=== PATIENT | female | born 1960 | race Two or more races ===

== ENCOUNTER 2024-10-02 08:51 | Inpatient (IN) | payer OTHER ==
[~2024-10-02] VITALS: Ht 172.7 cm; Wt 57.9 kg
[2024-10-02] VITALS (10 sets, daily range): BP systolic 114; BP diastolic 79; PULSE 87–100; RESP 11–25; O2SAT 94–99
--- NOTE | 2024-10-02 09:21 | ED.PDOC ---
SOB-HPI HPI Comments 64Y F with PMHx HTN, COPD, and seizures presents to ED via EMS for chief complaint SOB x2days with cough. Pt was initially seen at [facility] but was referred to ED due to SpO2 being 80% on RA. Pt was provided with one breathing treatment by EMS en route to ED. Pt stopped smoking cigarettes 7 days ago. No other symptoms reported. Chief Complaint: Shortness of Breath Time Seen by MD: 09:00 Reviewed notes: Nurses Notes, Scientific Advisor Notes, Medications, Allergies Information Source: Patient, Emergency Med Personnel Mode of Arrival: EMS Severity: Mild Timing: Days Duration: Since onset Context: At Rest PE Risk Factors: None History of: COPD Prehospital treatment: Breathing Tx Modifying Factors: Nothing Associated Signs and Symptoms: Cough If cough with SOB: Productive Past Medical History PAST MEDICAL HISTORY: COPD, HTN, Seizures Surgical History: Denies all surgeries BEREAVEMENT COUNSELOR History: No Pertinent BEREAVEMENT COUNSELOR History Family History Family History: Unknown Social History Smoker: Quit Less Than 1 Year Alcohol: Denies ETOH Use Drugs: Denies Drug Use Lives In: Home Constitutional: denies: chills, diaphoresis, fatigue, fever, malaise, sweats, weakness, others EENTM: denies: blurred vision, double vision, ear bleeding, ear discharge, ear drainage, ear pain, ear ringing, eye pain, eye redness, hearing loss, mouth pain, mouth swelling, nasal discharge, nose bleeding, nose congestion, nose pain, photophobia, tearing, throat pain, throat swelling, voice changes, others Respiratory: reports: cough, shortness of breath; denies: hemoptysis, orthopnea, SOB at rest, SOB with excertion, stridor, wheezing, others Cardiovascular: denies: chest pain, dizzy spells, diaphoresis, Dyspnea on exertion, edema, irregular heart beat, left arm pain, lightheadedness, palpitations, PND, syncope, others Gastrointestinal: denies: abdomen distended, abdominal pain, blood streaked bowels, constipated, diarrhea, dysphagia, difficulty swallowing, hematemesis, melena, nausea, poor appetite, poor fluid intake, rectal bleeding, rectal pain, vomiting, others Genitourinary: denies: abnormal vagina bleeding, burning, dyspareunia, dysuria, flank pain, frequency, hematuria, incontinence, pain, , vagina discharge, urgency, others Neurological: denies: dizziness, fainting, headache, left sided numbness, left sided weakness, numbness, paresthesia, pre-existing deficit, right sided numbness, right sided weakness, seizure, speech problems, tingling, tremors, weakness, others Musculoskeletal: denies: back pain, gout, joint pain, joint swelling, muscle pain, muscle stiffness, neck pain, others Integumetry: denies: bruises, change in color, change in hair/nails, dryness, laceration, lesions, lumps, rash, wounds, others Allergic/Immunocompromised: denies: Difficulty Healing, Frequent Infections, Hives, Itching, others Hematologic/Lymphatic: denies: anemia, blood clots, easy bleeding, easy bruising, swollen glands, others Endocrine: denies: excessive hunger, excessive sweating, excessive thirst, excessive urination, flushing, intolerance to cold, intolerance to heat, unexplained weight gain, unexplained weight loss, others Psychiatric: denies: anxiety, bipolar disorder, depression, hopeless, panic disorder, schizophrenia, sleepless, suicidal, others All Other Systems: Reviewed and Negative Physical Exam General Appearance: No Apparent Distress, Normal HEENT: Normal ENT Inspection, Pharynx Normal, TMs Normal Neck: Full Range of Motion, Non-Tender, Normal, Normal Inspection Respiratory: Chest Non-Tender, Lungs Clear, No Accessory Muscle Use, No Respiratory Distress, Normal Breath Sounds Cardiovascular: No Edema, No JVD, No Murmur, No Gallop, Normal Peripheral Pulses, Regular Rate/Rhythm Breast Exam: Deferred Gastrointestinal: No Organomegaly, Non Tender, No Pulsatile Mass, Normal Bowel Sounds, Soft Genitalia: Deferred Pelvic: Deferred Rectal: Deferred Extremities: No calf tenderness, Normal capillary refill, Normal inspection, Normal range of motion, Non-tender, No pedal edema Musculoskeletal : Apperance: Normal Neurologic: Alert, theology teacher II-XII nml as Tested, No Motor Deficits, Normal Affect, Normal Mood, No Sensory Deficits Cerebellar Function: Normal Reflexes: Normal Skin: Dry, Normal Color, Warm Lymphatic: No Adenopathy Was a procedure done? Was a procedure done?: No Differential Dx Differential Diagnosis: Anxiety, Asthma, Bronchitis, CHF, COPD, Hyperventilation, Myocardial infarction, Panic Attack, Pneumonia, Pneumothorax, Pulmonary Embolism, Respiratory Distress, URI X-Ray, Labs, Meds, VS Vital Signs Date Time Temp Pulse Resp B/P (MAP) Pulse Ox O2 Delivery O2 Flow Rate FiO2 10/02/24 10:00 95 16 121/86 (98) 97 10/02/24 09:46 98 10/02/24 09:31 93 94 Nasal Cannula* 2 28 10/02/24 09:00 98.6 100 20 145/92 (109) 94 98.6 10/02/24 09:00 95 20 94 Nasal Cannula* 2 28 10/02/24 08:57 18 99 T-piece 8.0 10/02/24 08:57 97.8 94 18 144/100 (115) 99 Lab Test 10/02/24 10:30 10/02/24 09:30 Range/Units Troponin I High Sensitivity Pending 8 </=34 ng/L White Blood Count 9.2 4.4-10.8 10^3/uL Red Blood Count 4.79 4.0-5.20 10^6/uL Hemoglobin 14.7 12.2-16.2 g/dL Hematocrit 42.9 36.0-46.0 % Mean Corpuscular Volume 89.6 80.0-100.0 fL Mean Corpuscular Hemoglobin 30.7 28.0-32.0 pg Mean Corpuscular Hemoglobin Concent 34.2 32.0-36.0 g/dL Red Cell Distribution Width 13.3 11.8-14.3 % Platelet Count 406 140-450 10^3/uL Mean Platelet Volume 7.6 6.9-10.8 fL Neutrophils (%) (Auto) 69.2 37.0-80.0 % Lymphocytes (%) (Auto) 20.1 10.0-50.0 % Monocytes (%) (Auto) 9.6 0.0-12.0 % Eosinophils (%) (Auto) 0.7 0.0-7.0 % Basophils (%) (Auto) 0.4 0.0-2.0 % Neutrophils # (Auto) 6.4 1.6-8.6 10 ^3/uL Lymphocytes # (Auto) 1.8 0.4-5.4 10 ^3/uL Monocytes # (Auto) 0.9 0-1.3 10 ^3/uL Eosinophils # (Auto) 0.1 0-0.8 10 ^3/uL Basophils # (Auto) 0 0-0.2 10 ^3/uL Nucleated Red Blood Cells 0.0 % Sodium Level 138 136-145 mmol/L Potassium Level 3.1 L 3.5-5.1 mmol/L Chloride Level 101 98-107 mmol/L Carbon Dioxide Level 31 20-31 mmol/L Anion Gap 6 5-15 Blood Urea Nitrogen 15 9-23 mg/dL Creatinine 0.95 0.550-1.02 mg/dL Glomerular Filtration Rate Calc 67 >90 mL/min BUN/Creatinine Ratio 15.8 10.0-20.0 Serum Glucose 146 H 74-106 mg/dL Calcium Level 9.8 8.7-10.4 mg/dL Current Medications Medications (Trade) Dose Ordered Sig/Collin Route Start Time Stop Time Status Last Admin Albuterol (Ventolin Medneb) 20 mg ONCE ONCE NEB 10/02/24 09:15 10/02/24 09:16 DC 10/02/24 09:31 Ipratropium Thelma (Atrovent Medneb) 0.5 mg ONCE ONCE NEB 10/02/24 09:15 10/02/24 09:16 DC 10/02/24 09:29 Methylprednisolone Sodium Succinate (Solu Medrol) 125 mg ONCE ONCE IV 10/02/24 09:15 10/02/24 09:16 DC 10/02/24 09:29 [place] [id number] Ph: [phone] DIAGNOSTIC IMAGING Diagnostic Imaging Report : [id number] Signed PATIENT: PREMA PADILLA ACCT: [id number] UNIT: [id number] : 1960 LOC: ER ROOM / BED: / AGE / SEX: 64 / F ADM STATUS: REG ER SERVICE 8 ORDERING PHYSICIAN: AILYN JONES MD PROCEDURE(s): CXRP - CHEST PORTABLE REASON: sob ORDER NUMBER(s): [id number], ACCESSION NUMBER(s): [id number] CHEST RADIOGRAPH Indication: sob Technique: Single frontal view of the chest was obtained Comparison: None FINDINGS: Lines and Tubes: None Lungs: No focal consolidation. Pleura: No effusion. No pneumothorax. Cardiomediastinal contours: Unremarkable Bones: No acute osseous abnormality. IMPRESSION: 1. No acute cardiopulmonary disease. ATED BY: TARUN KLEIN MD DICTATED DATE/TIME: 10/02/24927 SIGNED BY: TARUN KLEIN MD SIGNED DATE/TIME: 10/02/24927 CC: Time of 1ST Reevaluation: 09:30 Reevaluation 1ST: Unchanged Time of 2ND Reevaluation: 11:07 Reevaluation 2ND: Improved Patient Education/Counseling: Diagnosis, Treatment, Prognosis, Need For Follow Up Family Education/Counseling: No Family Present Additional Information I reviewed the following notes from patient's past medical encounters: None The following tests were ordered, and results were reviewed by me: EKGx3, CBC, BMP, Troponin x3, COVID19 Ag, Rapid Influenza A&B, CXR Additional Information was gathered from interviewing the following independent historians: EMS I reviewed and agreed with the following test results read by other providers: CXR I discussed treatment and results with medical personnel. pt is a smoker who quit a week ago. she has severe copd exacerbation with hypoxia. she responds to med neb treatments, but will need repeat treatments and close monitoring to ensure no recurrences. pt will be admitted Departure 1 Departure Time of Disposition: 11:09 Impression: Primary Impression: COPD exacerbation Additional Impressions: Tobacco abuse Acute respiratory failure Qualified Codes: J96.01 - Acute respiratory failure with hypoxia Disposition: ADMITTED INPATIENT Condition: Stable Discharged With: Self Critical Care Note Critical Care Time?: Yes (55 min-critical care time only) Critical care comment: Due to concerns for patients condition deteriorating, the care required my highest level of attention and readiness to intervene. I assessed the patient, reviewed the medical records, ordered the appropriate tests and treatments, then reassessed for results and responsiveness. I communicated with medical personnel and consultants and formulated a plan of care. Total critical care time excludes any procedures Stability Stability form required: No Heart Score Heart Score: Heart Score Response (Comments) Value History N/A 0 EKG N/A 0 Age N/A 0 Risk Factors N/A 0 Troponin N/A 0 Total 0 I personally scribed for AILYN JONES MD ([email or web address]) on 10/02/24 at 09:21. Electronically submitted by Rima Rios ([email or web address]). I personally scribed for AILYN JONES MD ([email or web address]) on 10/02/24 at 09:50. Electronically submitted by Rima Rios ([email or web address]). AILYN JONES MD Oct 02, 2024 09:21
[2024-10-02] MEDS: methylPREDNISolone SOD SUCC 125 MG/2 ML VL IV ONE (09:29)
[2024-10-02] MEDS: IPRATROPIUM BROM 0.5 MG/2.5ML INH SOL NEB ONE (09:29)
[2024-10-02] MEDS: ALBUTEROL SULF 2.5 MG/0.5ML(0.5%) NEB SOLN NEB ONE (09:31)
--- NOTE | 2024-10-02 09:31 | DVH ---
CHEST RADIOGRAPH Indication: sob Technique: Single frontal view of the chest was obtained Comparison: None FINDINGS: Lines and Tubes: None Lungs: No focal consolidation. Pleura: No effusion. No pneumothorax. Cardiomediastinal contours: Unremarkable Bones: No acute osseous abnormality. IMPRESSION: 1. No acute cardiopulmonary disease.
[2024-10-02 10:08] LABS: Chloride 101 mmol/L (98-107); Sodium 138 mmol/L (136-145)
[2024-10-02 10:09] LABS: Anion Gap 6 (5-15); Calcium 9.8 mg/dL (8.7-10.4)
[2024-10-02 10:12] LABS: Carbon Dioxide 31 mmol/L (20-31); Potassium 3.1 mmol/L (3.5-5.1)
[2024-10-02 10:14] LABS: BUN/Creatinine Ratio 15.8 (10.0-20.0); Blood Urea Nitrogen 15 mg/dL (9-23)
[2024-10-02 10:18] LABS: Basophils # (auto) 0 10 ^3/uL (0-0.2); Basophils % (auto) 0.4 % (0.0-2.0); Eosinophils # (auto) 0.1 10 ^3/uL (0-0.8); Eosinophils % (auto) 0.7 % (0.0-7.0); Hematocrit 42.9 % (36.0-46.0); Hemoglobin 14.7 g/dL (12.2-16.2); Lymphocytes # (auto) 1.8 10 ^3/uL (0.4-5.4); Lymphocytes % (auto) 20.1 % (10.0-50.0); Mean Corpuscular Hemoglobin 30.7 pg (28.0-32.0); Mean Corpuscular Hgb Conc. 34.2 g/dL (32.0-36.0); Mean Corpuscular Volume 89.6 fL (80.0-100.0); Monocytes # (auto) 0.9 10 ^3/uL (0-1.3); Monocytes % (auto) 9.6 % (0.0-12.0); Neutrophils # (auto) 6.4 10 ^3/uL (1.6-8.6); Neutrophils % (auto) 69.2 % (37.0-80.0); Platelet Count (auto) 406 10^3/uL (140-450); Red Blood Cells 4.79 10^6/uL (4.0-5.20); Red Cell Distribution Width 13.3 % (11.8-14.3); White Blood Cell 9.2 10^3/uL (4.4-10.8)
[2024-10-02 10:24] LABS: Glucose 146 mg/dL (74-106)
--- NOTE | 2024-10-02 11:49 | DVHHP2 ---
History of Present Illness Reason for Visit: Shortness of the breath and cough for two days History of Present Illness 64-year-old female past medical history hypertension COPD seizures greater than five years ago currently not on meds no surgical history chief complaint patient states she has been short of breath and not able to breathe for two days. She denies any fever. She states since she had this shortness of the breath she stopped smoking nine days prior. Patient states she went to [facility] today and they sent her here for evaluation because she was found to be hypoxic 80% on room air she got a breathing treatment on arrival here and which improved her symptoms. When evaluating past since labs and imaging potassium was given Solu-Medrol albuterol Atrovent CBC was unremarkable potassium was 3.1 glucose was 146 chest x-ray was negative troponin was negative x2 influenza and COVID was negative. Patient denies any history of intubation in the past. With these findings we will admit patient for COPD exacerbation provide IV steroids and treatments. Past Medical History Hypertension COPD seizures greater than five years ago Past Surgical History Denies surgical history Family History Reviewed, non-contributory to the management of this case. Past Social History Patient has stopped smoking nine days prior to admission due to the shortness of the breath denies any drug or alcohol use Review of Systems Constitutional: No: Fever, Chills, Sweats, Weakness, Malaise, Other Eyes: No: Pain, Vision change, Conjunctivae inflammation, Eyelid inflammation, Other, Redness ENT: No: Ear pain, Ear discharge, Nose pain, Nose discharge, Nose congestion, Mouth pain, Mouth swelling, Throat pain, Throat swelling, Other Respiratory: Shortness of breath, SOB with excertion, Wheezing; No: Cough, Dry, Hemoptysis, Pleuritic Pain, Sputum, Wheezing, Other Cardiovascular: No: Chest Pain, Palpitations, Orthopnea, Paroxysmal Noc. Dyspnea, Edema, Lt Headedness, Other Gastrointestinal: No: Nausea, Vomiting, Abdominal Pain, Diarrhea, Constipation, Melena, Hematochezia, Other Genitourinary: No Dysuria, No Frequency, No Incontinence, No Hematuria, No Retention, No Other Musculoskeletal: No: other, neck pain, shoulder pain, arm pain, back pain, hand pain, leg pain, foot pain Skin: No: Rash, Lesions, Jaundice, Bruising, Other Neurological: Weakness; No: Numbness, Incoordination, Change in speech, Confusion, Seizures, Other Allergies: Coded Allergies: NO KNOWN ALLERGIES (Unverified , 10/02/24) Exam Vital Signs Vital Signs Date Time Temp Pulse Resp B/P (MAP) Pulse Ox O2 Delivery O2 Flow Rate FiO2 10/02/24 10:00 95 16 121/86 (98) 97 10/02/24 09:31 Nasal Cannula* 2 28 10/02/24 09:00 98.6 98.6 General Appearance: Alert, Oriented X3, Cooperative, mild distress HEENT: Atraumatic, PERRLA, EOMI, Mucous membr. moist/pink Respiratory: Other (Coarse wheezes throughout) Cardiovascular: Regular rate, Normal S1, Normal S2, No murmurs Abdominal: Normal bowel sounds, Soft, No tenderness, No hepatospenomegaly, No masses Extremities: No clubbing, No cyanosis, No edema, Normal pulses, No tenderness/swelling Skin: No rashes, No breakdown, No significant lesion Neuro: Normal speech, Strength at 5/5 X4 ext, Normal tone, Sensation intact, Other (Neuro nonfocal) Psych/Mental Status: Mental status NL, Mood NL Labs/Xrays Chest x-ray unremarkable I reviewed labs, imaging CT scan abdomen pelvis, EKG and all diagnostic studies on this patient from ED records and the medical chart Labs Test 10/02/24 11:30 10/02/24 10:30 10/02/24 09:30 Range/Units Troponin I High Sensitivity 7 </=34 ng/L White Blood Count 9.2 4.4-10.8 10^3/uL Red Blood Count 4.79 4.0-5.20 10^6/uL Hemoglobin 14.7 12.2-16.2 g/dL Hematocrit 42.9 36.0-46.0 % Mean Corpuscular Volume 89.6 80.0-100.0 fL Mean Corpuscular Hemoglobin 30.7 28.0-32.0 pg Mean Corpuscular Hemoglobin Concent 34.2 32.0-36.0 g/dL Red Cell Distribution Width 13.3 11.8-14.3 % Platelet Count 406 140-450 10^3/uL Mean Platelet Volume 7.6 6.9-10.8 fL Neutrophils (%) (Auto) 69.2 37.0-80.0 % Lymphocytes (%) (Auto) 20.1 10.0-50.0 % Monocytes (%) (Auto) 9.6 0.0-12.0 % Eosinophils (%) (Auto) 0.7 0.0-7.0 % Basophils (%) (Auto) 0.4 0.0-2.0 % Neutrophils # (Auto) 6.4 1.6-8.6 10 ^3/uL Lymphocytes # (Auto) 1.8 0.4-5.4 10 ^3/uL Monocytes # (Auto) 0.9 0-1.3 10 ^3/uL Eosinophils # (Auto) 0.1 0-0.8 10 ^3/uL Basophils # (Auto) 0 0-0.2 10 ^3/uL Nucleated Red Blood Cells 0.0 % Sodium Level 138 136-145 mmol/L Potassium Level 3.1 L 3.5-5.1 mmol/L Chloride Level 101 98-107 mmol/L Carbon Dioxide Level 31 20-31 mmol/L Anion Gap 6 5-15 Blood Urea Nitrogen 15 9-23 mg/dL Creatinine 0.95 0.550-1.02 mg/dL Glomerular Filtration Rate Calc 67 >90 mL/min BUN/Creatinine Ratio 15.8 10.0-20.0 Serum Glucose 146 H 74-106 mg/dL Calcium Level 9.8 8.7-10.4 mg/dL Assessment/Plan Assessment/Plan acute hypoxic resp failure likely from copd exacerbation cxr normal o2 to keep sats >92% Continue O2 ordered abg if sats desats consider bipap if with resp distress no need for antibotics at this time ordered Albuterol and Atrovent atc ordered solumedrol atc covid and influenza negative acute COPD exacerbation sats was 80% on ra ordered albuterol/atrovent atc ordered Oxygen as needed keep sats greater than 92% ordered solumedrol ordered Advair pulmon consult appreciate recs ordered influenza and covid fu results acute mild hypokalemia ordered repeat k fu results ordered mag and phos fu results chronic problems with continuation of medication htn cpod seizures greater than five years ago currently not on meds fen/ppx protonix while steroids scd diet plan admit to tele son name Harley [phone] Plan discussed with: Patient Date of Service: Oct 02, 2024 Billing Provider: LAKISHA BURRIS DNP Common Visit Codes: [id number]-[id number] INP/OBS CARE (HIGH), [id number] CARE 30- 74 MIN (Total critical care time: Approximately 45 minutes This critical care time included obtaining a history; examining the patient; pulse oximetry; ordering and review of studies; arranging urgent treatment with development of a management plan; evaluation of patient's response to treatment; frequent reassessment; and, discussions with other providers.) LAKISHA BURRIS DNP Oct 02, 2024 11:49
[2024-10-02] MEDS: POTASSIUM CHL 20 Meq TABLET PO ONE (12:11)
[2024-10-02 12:34] LABS: COVID19 ANTIGEN SOFIA FIA NEGATIVE (NEGATIVE); Rapid Influenza A Negative (Negative); Rapid Influenza B Negative (Negative)
[2024-10-02] MEDS ORDERED: DOCUSATE SOD 100 MG CAP PO PRN (13:00)
[2024-10-02] MEDS ORDERED: NITROGLYCERIN 0.4 MG SL TAB SL PRN (13:00)
[2024-10-02] MEDS ORDERED: ONDANSETRON HCL 4 MG/2 ML VIAL IV PRN (13:00)
[2024-10-02 13:24] LABS: Magnesium 1.8 mg/dL (1.6-2.6)
[2024-10-02 13:25] LABS: Phosphorus 3.2 mg/dL (2.4-5.1)
[2024-10-02 13:26] LABS: Base Excess 4.6 mmol/L (-2.0-3.0)
[2024-10-02] MEDS: PANTOPRAZOLE 40 MG/10 ML VIAL INJ IV ONE (13:33)
[2024-10-02] MEDS: SODIUM CHLORIDE 0.9% 1,000 ML IV SCH (13:33)
[2024-10-02] MEDS: methylPREDNISolone SOD SUCC 40 MG/ML VL IV SCH (13:34)
[2024-10-02] MEDS: IPRATROPIUM BROM 0.5 MG/2.5ML INH SOL NEB SCH (13:35)
[2024-10-02] MEDS: ALBUTEROL SULF 2.5 MG/0.5ML(0.5%) NEB SOLN NEB SCH (13:35)
[2024-10-02] MEDS: AMIODARONE BOLUS KIT 100 ML IV ONE (15:00)
[2024-10-02] MEDS: AMIODARONE 450mg/250ml AE 250 ML IV SCH ×2 (15:15→15:31)
--- NOTE | 2024-10-02 15:31 | DVHINCON2 ---
Date Seen: Oct 02, 2024 Referring Physician ALIS Zelaya Reason for Consultation Nonsustained V-tach History of Present Illness This is a 64-year-old female patient who presents to the emergency room with chief complaint of shortness of breath and cough for one week. She also mentions chest pain. She describes the chest pain as provoked by coughing, intermittent, pressure-like in nature, and substernal with radiation down bilateral ribcage. The patient states that she was originally seen at urgent care and was prompted to come to the emergency room for further evaluation. Cardiology has now been consulted for episode of nonsustained V-tach. Initial twelve lead electrocardiogram reveals sinus tachycardia with PAC and prolonged QTc interval at 538. quality assurance monitor body shows event of nonsustained V-tach. Initial and serial troponin levels have been negative. Significant past medical history includes hypertension, COPD, tobacco use, kidney stones, and seizures. The patient denies any previous cardiac history. Past Medical History Past medical history reviewed. No other significant than mentioned above. Past Surgical History Tonsillectomy Appendectomy Cholecystectomy Family History Family history reviewed. Social History Patient has a 25 pack-year history, quit smoking approximately nine days ago Patient denies any illicit drug use Patient denies any alcohol use Allergies: Coded Allergies: NO KNOWN ALLERGIES (Unverified , 10/02/24) Home Meds Patient denies taking any prescribed medications Current Medications Current Medications Medications (Trade) Dose Ordered Sig/Collin Route PRN Reason Start Time Stop Time Status Last Admin Methylprednisolone Sodium Succinate (Solu Medrol) 40 mg Q8HR IV 10/02/24 14:00 10/02/24 13:34 Pantoprazole Sodium (Protonix) 40 mg DAILY IV 10/03/24 10:00 Albuterol (Ventolin Medneb) 2.5 mg Q4HR NEB 10/02/24 14:00 10/02/24 13:35 Ipratropium [place] (Atrovent Medneb) 0.5 mg Q4HR NEB 10/02/24 14:10/02/24 13:35 Sodium Chloride 1,000 ml @ 100 mls/hr Q10H IV 10/02/24 13:00 10/02/24 13:33 Ondansetron HCl (Zofran) 4 mg Q4HP PRN IV NAUSEA / VOMITING 10/02/24 13:00 Docusate Sodium (Colace Capsule) 100 mg BIDPRN PRN PO FOR CONSTIPATION 10/02/24 13:00 Enoxaparin Sodium (Lovenox) 40 mg DAILY SC 10/03/24 10:00 Morphine Sulfate 2 mg Q4HPRN PRN IV SEVERE PAIN (7-10 PAIN SCALE) 10/02/24 13:00 Nitroglycerin (Ntrostat Sublingual) 0.4 mg Q5MINP PRN SL FOR CHEST PAIN 10/02/24 13:00 Amiodarone HCl 250 ml @ 33.333 mls/ hr Q7H30M IV 10/02/24 15:15 10/02/24 21:14 Amiodarone HCl 250 ml @ 16.667 mls/ hr Q15H IV 10/02/24 21:15 Review of Systems Constitutional: No symptom reported Ears, Nose, & Throat: No symptom reported Eyes: No symptom reported Neurological: No symptoms reported Pulmonary/Respiratory: Shortness of breath Cardiovascular: Chest pain Gastrointestinal: No symptom reported Genitourinary: No symptom reported Musculoskeletal: No symptom reported Skin: No symptom reported Psychiatric: No symptom reported Endocrine: No symptom reported Hematologic/Lymphatic: No symptom reported Vital Signs Vital Signs Date Time Temp Pulse Resp B/P (MAP) Pulse Ox O2 Delivery O2 Flow Rate FiO2 10/02/24 14:00 101 16 124/74 (91) 95 10/02/24 13:46 4.0 10/02/24 13:35 Nasal Cannula* 36 10/02/24 09:00 98.6 98.6 Physical Exam General Appearance: Cooperative. Thin Pulmonary/Respiratory: Coarse and diminished throughout all lung sánchez Cardiovascular/Chest: Regular rate and rhythm. Peripheral Pulses: 2+ Radial (R). 2+ Radial (L). 2+ Pedal (R). 2+ Pedal (L) Abdominal Exam: Normal bowel sounds. Ankle Exam: Negative ankle edema Lower extremities: Negative lower extremity edema Neuro/Mental Status: A/OX4, coherent. Thoughts/Psych: Normal thought pattern. Appropriate mood and affect. Good judgment and insight. Appearance: No acute distress. Skin Exam: Normal inspection. Normal color. Warm and dry. Labs/Diagnostic Data Labs Test 10/02/24 13:10 10/02/24 11:30 10/02/24 10:30 10/02/24 09:30 Range/Units Blood Gas Specimen Type Arterial Blood Gas Sample Site Left radial Blood Gas Patient Temperature 37.0 Arterial Blood Date Drawn [id number] Arterial Blood pH 7.473 H 7.350-7.450 Arterial Blood Partial Pressure CO2 39.7 32.0-45.0 mmHg Arterial Blood Partial Pressure O2 54.7 *L 83.0-108.0 mmHg Arterial Blood HCO3 28.4 H 21.0-28.0 mmol/L Arterial Blood Oxygen Saturation 91.0 L 94.0-98.0 % Arterial Blood Base Excess 4.6 H -2.0-3.0 mmol/L Arterial Blood Oxyhemoglobin 89.4 L 94.0-98.0 % Arterial Blood Carboxyhemoglobin 1.1 0.5-1.5 % Arterial Blood Methemoglobin 0.7 0.0-1.5 % Slick Test Yes Blood Gas Total Hemoglobin 14.80 12.0-16.0 g/dL Blood Gas Modality Room air FiO2 % 28.0 Blood Gas Critical Value Read Back yes Blood Gas Notified Whom Marc zelaya dnp Blood Gas Notified Time [id number] Blood Gas Notified By hernando angel rrt Influenza Type A Antigen Negative Negative Influenza Type B Antigen Negative Negative SARS-CoV-2 Antigen (Rapid) Negative NEGATIVE Troponin I High Sensitivity 7 </=34 ng/L White Blood Count 9.2 4.4-10.8 10^3/uL Red Blood Count 4.79 4.0-5.20 10^6/uL Hemoglobin 14.7 12.2-16.2 g/dL Hematocrit 42.9 36.0-46.0 % Mean Corpuscular Volume 89.6 80.0-100.0 fL Mean Corpuscular Hemoglobin 30.7 28.0-32.0 pg Mean Corpuscular Hemoglobin Concent 34.2 32.0-36.0 g/dL Red Cell Distribution Width 13.3 11.8-14.3 % Platelet Count 406 140-450 10^3/uL Mean Platelet Volume 7.6 6.9-10.8 fL Neutrophils (%) (Auto) 69.2 37.0-80.0 % Lymphocytes (%) (Auto) 20.1 10.0-50.0 % Monocytes (%) (Auto) 9.6 0.0-12.0 % Eosinophils (%) (Auto) 0.7 0.0-7.0 % Basophils (%) (Auto) 0.4 0.0-2.0 % Neutrophils # (Auto) 6.4 1.6-8.6 10 ^3/uL Lymphocytes # (Auto) 1.8 0.4-5.4 10 ^3/uL Monocytes # (Auto) 0.9 0-1.3 10 ^3/uL Eosinophils # (Auto) 0.1 0-0.8 10 ^3/uL Basophils # (Auto) 0 0-0.2 10 ^3/uL Nucleated Red Blood Cells 0.0 % Sodium Level 138 136-145 mmol/L Potassium Level 3.1 L 3.5-5.1 mmol/L Chloride Level 101 98-107 mmol/L Carbon Dioxide Level 31 20-31 mmol/L Anion Gap 6 5-15 Blood Urea Nitrogen 15 9-23 mg/dL Creatinine 0.95 0.550-1.02 mg/dL Glomerular Filtration Rate Calc 67 >90 mL/min BUN/Creatinine Ratio 15.8 10.0-20.0 Serum Glucose 146 H 74-106 mg/dL Calcium Level 9.8 8.7-10.4 mg/dL Phosphorus Level 3.2 2.4-5.1 mg/dL Magnesium Level 1.8 1.6-2.6 mg/dL Assessment Nonsustained ventricular tachycardia Rule out structural heart disease Acute hypoxic respiratory failure COPD exacerbation Hypokalemia History of seizures History of tobacco use Plan/Recommendation We will continue with the following plan/recommendations (Dr. Kimbrough): * Echocardiogram to evaluate cardiac function * Cardiac surveillance * Monitor and replete electrolytes as needed, keep potassium greater than four and magnesium greater than two * Nuclear stress test 10/03/24 Patient seen and examined in the emergency room with . We will schedule the patient for a nuclear stress test tomorrow 10/03/2024. Thank you for allowing us to care for this patient. Please call with any questions or concerns. Critical care time spent: 43 minutes This medical document was created using an electronic medical record system with voice recognition software and computerized dictation system. Although this document has been carefully reviewed, there might still be some phonetic and typographical errors. Occasional wrong-word or ``sound-alike substitutions may have occurred due to the inherent limitations of voice recognition software. These areas are purely typographical due to imperfections of the software programs and do not reflect any compromise in the patient's medical care. Please read the chart carefully and recognize, using context, where these substitutions have occurred. Plan discussed with: Patient NYHA Physical activity limitations: NA Date of Service: Oct 02, 2024 Billing Provider: TERI KIMBROUGH MD Cardiology Common Codes: [id number] INP/OBS CARE (High) Cardiology Consultation Codes: [id number] CONSULT <45MIN JOHN ARIAS Oct 02, 2024 15:31
[2024-10-02] MEDS: MAGNESIUM SULFATE 1GM/100ML 100 ML IV ONE (16:58)
--- NOTE | 2024-10-02 18:31 | ECG ---
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
--- NOTE | 2024-10-02 19:35 | DVHSR ---
APPROVED REPORT EXAM: LIMITED Two-dimensional and M-mode echocardiogram with Doppler and color Doppler. Blood Pressure: 124/74 mmHg INDICATION eval for cardiac function and ef RISK FACTORS Height: 5'4, Weight: 120 DIMENSIONS EF (%) 55.0 (55-70%)Rt. Atrium3.8 (1.9-4.0cm)Asc. Aorta cm Mitral Valve MitralMitral Stenosis E wave0.52m/sMV Mean GR.mmHg A wave0.77m/sMV Peak GR.mmHg E/A ratio0.72D MVAcm2 DECEL [id number] 1/2 Tim[place] Aortic Valve Aortic ValveAortic Stenosis V11.11m/Tamir Mean GR.5mmHg V21.55m/Tamir Peak GR.10mmHg LVOT Diameter1.6 (1.8-2.4cm)Doppler AVA1.44cm2 Tricuspid Valve TR Velocity2.43m/s [id number] LEFT VENTRICLE Not well visualized. Likely normal systolic function. EF estimated at 60%. RIGHT VENTRICLE Not well visualized. Likely normal size and systolic function. ATRIA Not well visualized. Likely normal biatrial size. MITRAL VALVE Not well visualized. No significant regurgitation. PULMONIC VALVE Not well visualized. TRICUSPID VALVE Likely normal. There is trace regurgitation. PA systolic pressure estimated at 29 mmhg. AORTIC VALVE Not well visualized. No evidence of significant stenosis. GREAT VESSELS Not well visualized. PERICARDIAL EFFUSION No pericardial effusion. IVC is of normal size and collapses normally with inspiration. Conclusion Study is very technically limited. Normal left ventricular systolic function with EF of 60%. Normal right ventricle size and systolic function. Valves not well visualized. PA systolic pressure estimated at 29 mmHg. No pericardial effusion.
[2024-10-03] VITALS (21 sets, daily range): BP systolic 130–147; BP diastolic 77–96; PULSE 77–97; RESP 12–20; TEMP 98–98.5; O2SAT 93–100
[2024-10-03 06:32] LABS: Basophils # (auto) 0 10 ^3/uL (0-0.2); Basophils % (auto) 0.1 % (0.0-2.0); Eosinophils # (auto) 0 10 ^3/uL (0-0.8); Hematocrit 36.1 % (36.0-46.0); Hemoglobin 12.3 g/dL (12.2-16.2); Lymphocytes % (auto) 11.2 % (10.0-50.0); Mean Corpuscular Hemoglobin 30.5 pg (28.0-32.0); Mean Corpuscular Hgb Conc. 34.1 g/dL (32.0-36.0); Mean Corpuscular Volume 89.4 fL (80.0-100.0); Monocytes # (auto) 0.7 10 ^3/uL (0-1.3); Monocytes % (auto) 7.7 % (0.0-12.0); Neutrophils # (auto) 7.3 10 ^3/uL (1.6-8.6); Platelet Count (auto) 371 10^3/uL (140-450); Red Blood Cells 4.04 10^6/uL (4.0-5.20); Red Cell Distribution Width 13.6 % (11.8-14.3); White Blood Cell 9.1 10^3/uL (4.4-10.8)
[2024-10-03 06:39] LABS: Albumin 3.6 g/dL (3.2-4.8); Alkaline Phosphatase 75 U/L (46-116); Anion Gap 6 (5-15); BUN/Creatinine Ratio 31.4 (10.0-20.0); Blood Urea Nitrogen 22 mg/dL (9-23); Calcium 9.4 mg/dL (8.7-10.4); Carbon Dioxide 28 mmol/L (20-31); Chloride 106 mmol/L (98-107); Potassium 3.6 mmol/L (3.5-5.1); Sodium 140 mmol/L (136-145); Total Protein 6.4 g/dL (5.7-8.2)
[2024-10-03 06:42] LABS: Aspartate Aminotransferase 10 U/L (13-40); Glucose 133 mg/dL (74-106)
[2024-10-03 06:43] LABS: Alanine Aminotransferase < 9 U/L (7-40); Bilirubin, Total 0.3 mg/dL (0.2-1.0)
--- NOTE | 2024-10-03 07:42 | ECG ---
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
[2024-10-03] MEDS: MORPHINE SULFATE INJ 2 MG/ml SYRG IV PRN (08:33)
[2024-10-03] MEDS: REGADENOSON 0.4 MG/5 ML SYRG IV ONE ×2 (09:42→09:49)
[2024-10-03] MEDS: ENOXAPARIN SOD 40 MG/0.4 ML SYRINGE SC SCH (10:04)
[2024-10-03] MEDS: PANTOPRAZOLE 40 MG/10 ML VIAL INJ IV SCH (10:04)
--- NOTE | 2024-10-03 10:07 | DVHPN2 ---
Consult Progress Note Subjective Other Systems: The patient remains in normal sinus rhythm on alarm security or surveillance monitor at time of assessment Objective vital signs Vital Sign Date Time Temp Pulse Resp B/P (MAP) Pulse Ox O2 Delivery O2 Flow Rate FiO2 10/03/24 09:03 92 16 140/84 10/03/24 09:00 94 10/03/24 07:50 98.2 98.2 10/03/24 07:50 Nasal Cannula* 3 32 Total Intake and Output 10/02/24 10/02/24 10/03/24 15:00 23:00 07:00 Intake Total 500 ml 1100 ml Balance 500 ml 1100 ml medications Current Medications Medications Dose Ordered Sig/Collin Route Start Time Stop Time Status Last Admin Dose Admin Methylprednisolone Sodium Succinate 40 mg Q8HR IV 10/02/24 14:00 10/03/24 05:12 40 MG Pantoprazole Sodium 40 mg DAILY IV 10/03/24 10:00 10/03/24 10:04 40 MG Albuterol 2.5 mg Q4HR NEB 10/02/24 14:00 10/03/24 06:41 2.5 MG Ipratropium [place] 0.5 mg Q4HR NEB 10/02/24 14:00 10/03/24 06:40 0.5 MG Sodium Chloride 1,000 ml @ 100 mls/hr Q10H IV 10/02/24 13:00 10/03/24 09:12 100 MLS/HR Ondansetron HCl 4 mg Q4HP PRN IV 10/02/24 13:00 Docusate Sodium 100 mg BIDPRN PRN PO 10/02/24 13:00 Enoxaparin Sodium 40 mg DAILY SC 10/03/24 10:00 10/03/24 10:04 40 MG Morphine Sulfate 2 mg Q4HPRN PRN IV 10/02/24 13:00 10/03/24 08:33 2 MG Nitroglycerin 0.4 mg Q5MINP PRN SL 10/02/24 13:00 Examination: GENERAL:Normal, LUNGS:Abnormal (Diminished bilateral lower lobes), CVS:Normal, NEURO:Normal laboratory and microbiology Laboratory Tests 10/03/24 05:45 Test 10/03/24 05:45 Range/Units Serum Glucose 133 H 74-106 mg/dL Problem List/Assessment/Plan Problem List/Assessment/Plan Nonsustained ventricular tachycardia Acute hypoxic respiratory failure COPD exacerbation Hypokalemia History of seizures History of tobacco use Plan/Recommendation (Dr. Garcia): * Echocardiogram reveals EF 60% * Cardiac surveillance * Monitor and replete electrolytes as needed, keep potassium greater than four and magnesium greater than two * Pending nuclear stress test results Patient seen and examined at bedside with Dr. Garcia. Thank you for allowing us to care for this patient. Please call with any questions or concerns. This medical document was created using an electronic medical record system with voice recognition software and computerized dictation system. Although this document has been carefully reviewed, there might still be some phonetic and typographical errors. Occasional wrong-word or ``sound-alike substitutions may have occurred due to the inherent limitations of voice recognition software. These areas are purely typographical due to imperfections of the software programs and do not reflect any compromise in the patient's medical care. Please read the chart carefully and recognize, using context, where these substitutions have occurred. Plan discussed with: Patient Date of Service: Oct 03, 2024 Billing Provider: JOHN ARIAS Common Visit Codes: [id number] INP/OBS CARE(HIGH) JOHN ARIAS Oct 03, 2024 10:07
[2024-10-03] MEDS: POTASSIUM CHL 20 Meq TABLET PO ONE (10:30)
[2024-10-03] MEDS ORDERED: KETOROLAC TROMETH 30 MG/ML 1ML VIAL IV PRN (14:45)
--- NOTE | 2024-10-03 18:27 | DVHOP ---
DATE OF SURGERY: 10/03/2024 TECHNIQUE PERFORMED: Intermittent myocardial perfusion scan. PROCEDURE IN DETAIL: The patient underwent a resting scan by giving intravenous Cardiolite. With the help of the SPECT camera different images of the left ventricle were obtained, which include long axis, short axis and horizontal axis views. The patient was subsequently given intravenous adenosine and followed by intravenous technetium-99m sestamibi to do the stress images. Now after we have done the images in short axis, long axis and then horizontal axial view. Subsequently, stress and rest images both have been compared. There is a normal perfusion of anterior wall, lateral wall, inferoposterior wall and septum. Size of the left ventricle, normal ejection fraction of the left ventricle is 53% and is normal. CONCLUSION: * This is a normal myocardial perfusion scan. No evidence of any perfusion defect. * Left ventricular ejection fraction 53% and is normal. Catalina Garcia MD MP/MICK TID: [id number] RECEIPT: [id number]
--- NOTE | 2024-10-03 19:54 | DVHPN2 ---
Consult Progress Note Subjective Other Systems: Patient was seen and evaluated in follow-up. The patient remains in normal sinus rhythm on cardiac nurse. Stres test is pending. Objective vital signs Vital Sign Date Time Temp Pulse Resp B/P (MAP) Pulse Ox O2 Delivery O2 Flow Rate FiO2 10/03/24 17:00 98.5 90 19 142/88 (106) 95 98.5 10/03/24 13:55 Nasal Cannula* 3 32 Total Intake and Output 10/02/24 10/02/24 10/03/24 15:00 23:00 07:00 Intake Total 500 ml 1100 ml Balance 500 ml 1100 ml medications Current Medications Medications Dose Ordered Sig/Collin Route Start Time Stop Time Status Last Admin Dose Admin Albuterol 2.5 mg Q4HR NEB 10/02/24 14:00 10/03/24 13:55 2.5 MG Ipratropium [place] 0.5 mg Q4HR NEB 10/02/24 14:00 10/03/24 13:55 0.5 MG Sodium Chloride 1,000 ml @ 100 mls/hr Q10H IV 10/02/24 13:00 10/03/24 09:12 100 MLS/HR Enoxaparin Sodium 40 mg DAILY SC 10/03/24 10:00 10/03/24 10:04 40 MG Acetaminophen 650 mg Q8HR PO 10/03/24 22:00 Prednisone 40 mg DAILY PO 10/04/24 10:00 Azithromycin 250 mg DAILY PO 10/04/24 10:00 Ketorolac Tromethamine 15 mg Q6HPRN PRN IV 10/03/24 14:45 10/08/24 14:44 Examination: GENERAL:Normal, HEENT:Normal, NECK:Normal, LUNGS:Abnormal (Diminished bilateral lower lobes), CVS:Normal, ABDOMEN:Normal, MSK:Normal, SKIN:Normal, NEURO:Normal laboratory and microbiology Laboratory Tests 10/03/24 05:45 Test 10/03/24 05:45 Range/Units Serum Glucose 133 H 74-106 mg/dL Problem List/Assessment/Plan Problem List/Assessment/Plan Nonsustained ventricular tachycardia. Acute hypoxic respiratory failure. COPD exacerbation. Hypokalemia. History of seizures. History of tobacco use. Plan/Recommendation: Continued all current supportive medical care. Patient has been seen by Karo Espinoza NP on my behalf, her and I discussed the plan with the patient. Echocardiogram reveals EF 60%. Cardiac surveillance. Monitor and replete electrolytes as needed, keep potassium greater than four and magnesium greater than two. Pending nuclear stress test results. Additional plan as per the hospital course. Plan discussed with: Patient Date of Service: Oct 03, 2024 Billing Provider: CAMERON GALLEGOS MD Cardiology Common Codes: [id number] HOSP CARE(High CAMERON GALLEGOS MD Oct 03, 2024 18:31
--- NOTE | 2024-10-03 20:51 | DVHPN2 ---
Assessment/Plan Assessment/Plan Progress note subjective seen today during rounds, on o2 supp, not using any nebs at home, ss since 9 days, started with URI. tele reviewed, NSVT. stress test negative physical exam alert oriented s1 s2 RRR no murmur mild wheezing abdomen soft no paraspinal tenderness no le edema labs and imaging reviewed assessment and plan COPD group E with exacerbation PNA GN vs GP NSVT chronic back pain ex smoker c/w telemetry prednisone albuterol ipatropium zithromax empiric keep spo2 >90 cardio consult appreciated needs PCP and pulm as outpatient diet heart healthy dvt ppx lovenox Plan discussed with: Patient My Orders Orders - MARIAJOSE CA MD Procedure Category Date Status Time Acetaminophen Tablet PHA 10/03/24 In Process (Tylenol Tablet) 22:00 Prednisone Tablet PHA 10/04/24 In Process 10:00 Azithromycin Tablet PHA 10/04/24 In Process (Zithromax Tablet) 10:00 Ketorolac Injection PHA 10/03/24 In Process (Toradol Injection) 14:45 Date of Service: Oct 03, 2024 Billing Provider: MARIAJOSE CA MD Common Visit Codes: [id number] INP/OBS CARE(HIGH) MARIAJOSE CA MD Oct 03, 2024 20:51
[2024-10-03] MEDS: ACETAMINOPHEN 325 MG TAB PO SCH (21:30)
[2024-10-03] MEDS: DOXYCYCLINE 100 MG TAB/CAP PO SCH (22:49)
[2024-10-04] VITALS (20 sets, daily range): BP systolic 110–144; BP diastolic 66–87; PULSE 68–94; RESP 14–20; TEMP 91.2–98.7; O2SAT 91–100
[2024-10-04 06:55] LABS: Calcium 9.2 mg/dL (8.7-10.4); Chloride 106 mmol/L (98-107); Potassium 4.1 mmol/L (3.5-5.1); Sodium 141 mmol/L (136-145)
[2024-10-04 06:56] LABS: Anion Gap 4 (5-15); Carbon Dioxide 31 mmol/L (20-31)
[2024-10-04 07:01] LABS: BUN/Creatinine Ratio 36.1 (10.0-20.0); Glucose 85 mg/dL (74-106)
[2024-10-04 07:11] LABS: Blood Urea Nitrogen 26 mg/dL (9-23)
[2024-10-04] MEDS: predniSONE 20 MG TAB PO SCH (09:54)
[2024-10-04] MEDS ORDERED: AZITHROMYCIN 250 MG TAB PO SCH (10:00)
--- NOTE | 2024-10-04 15:34 | DVHPN2 ---
Assessment/Plan Assessment/Plan Progress note subjective seen today during rounds, titrating down o2 rec. still mildly wheezing physical exam alert oriented s1 s2 RRR no murmur mild wheezing abdomen soft no paraspinal tenderness no le edema labs and imaging reviewed assessment and plan COPD group E with exacerbation PNA GN vs GP NSVT chronic back pain ex smoker c/w telemetry prednisone albuterol ipatropium zithromax empiric keep spo2 >90 cardio consult appreciated needs PCP and pulm as outpatient diet heart healthy dvt ppx lovenox Plan discussed with: Patient My Orders Orders - MARIAJOSE CA MD Procedure Category Date Status Time Doxycycline Tablet PHA 10/03/24 In Process (Vibramycin Tablet) 22:00 Date of Service: Oct 04, 2024 Billing Provider: MARIAJOSE CA MD Common Visit Codes: [id number] INP/OBS CARE(HIGH) MARIAJOSE CA MD Oct 04, 2024 15:34
--- NOTE | 2024-10-04 22:08 | DVHPN2 ---
Progress Note - Dictate Date Seen: Oct 04, 2024 Medical Necessity Reason Pt with a Central, PICC or Fol: No Subjective Patient was seen and evaluated in follow up. Patient is complaining of SOB. Patient is on 2 LPM NC. Myocardial perfusion scan shows normal myocardial perfusion scan. No evidence of any perfusion defect. Left ventricular ejection fraction 53% and is normal. BUN 26. Telemetry reviewed. vital signs Vital Sign Date Time Temp Pulse Resp B/P (MAP) Pulse Ox O2 Delivery O2 Flow Rate FiO2 10/04/24 18:24 78 20 99 10/04/24 18:16 Nasal Cannula 2.0 10/04/24 18:16 28 10/04/24 17:00 98.7 144/69 (94) 98.7 Total Intake and Output 10/03/24 10/03/24 10/04/24 15:00 23:00 07:00 Intake Total 200 ml 1055 ml 900 ml Balance 200 ml 1055 ml 900 ml medications Current Medications Medications Dose Ordered Sig/Collin Route Start Time Stop Time Status Last Admin Dose Admin Albuterol 2.5 mg Q4HR NEB 10/02/24 14:00 10/04/24 18:16 2.5 MG Ipratropium [place] 0.5 mg Q4HR NEB 10/02/24 14:00 10/04/24 18:16 0.5 MG Enoxaparin Sodium 40 mg DAILY SC 10/03/24 10:00 10/04/24 09:55 40 MG Acetaminophen 650 mg Q8HR PO 10/03/24 22:00 10/04/24 12:01 650 MG Prednisone 40 mg DAILY PO 10/04/24 10:00 10/04/24 09:54 40 MG Ketorolac Tromethamine 15 mg Q6HPRN PRN IV 10/03/24 14:45 10/08/24 14:44 Doxycycline Monohydrate 100 mg Q12HR PO 10/03/24 22:00 10/04/24 09:54 100 MG objective GENERAL: Awake, alert, oriented. LUNGS: Clear. CARDIOVASCULAR: Heart sounds are good. ABDOMEN: Soft. laboratory and microbiology Laboratory Tests 10/04/24 06:20 10/03/24 05:45 Test 10/04/24 06:20 Range/Units Serum Glucose 85 74-106 mg/dL Problem List Nonsustained ventricular tachycardia. Acute hypoxic respiratory failure. COPD exacerbation. Hypokalemia. History of seizures. History of tobacco use. Plan/Recommendation: Continued all current supportive medical care. Patient has been seen by Karo Espinoza NP on my behalf, her and I discussed the plan with the patient. Echocardiogram reveals EF 60%. Cardiac surveillance. Monitor and replete electrolytes as needed, keep potassium greater than four and magnesium greater than two. Pending nuclear stress test results. Additional plan as per the hospital course. Assessment/Plan Continued all current supportive medical care. Antibiotics as ordered. DVT prophylactics. Toradol for pain management. Additional plan as per the hospital course. Plan discussed with: Patient CAMERON GALLEGOS MD Oct 04, 2024 19:12
[2024-10-05] VITALS (18 sets, daily range): BP systolic 117–133; BP diastolic 61–81; PULSE 77–100; RESP 14–20; TEMP 97.7–99.1; O2SAT 85–100
[2024-10-05] MEDS ORDERED: AZIT-185 PO (16:22)
[2024-10-05] MEDS ORDERED: UMEC1INH IN (16:22)
[2024-10-05] MEDS ORDERED: PRED20TA2 PO (16:22)
[2024-10-05] MEDS ORDERED: ALBU108A5 IN (16:22)
--- NOTE | 2024-10-05 20:58 | DVHPN2 ---
Assessment/Plan Assessment/Plan Progress note subjective stress test normal. pednign cardio clearance for dc. titrating down O2 physical exam alert oriented s1 s2 RRR no murmur mild wheezing abdomen soft no paraspinal tenderness no le edema labs and imaging reviewed assessment and plan COPD group E with exacerbation PNA GN vs GP NSVT chronic back pain ex smoker c/w telemetry prednisone albuterol ipatropium zithromax empiric keep spo2 >90 cardio consult appreciated needs PCP and pulm as outpatient diet heart healthy dvt ppx lovenox Plan discussed with: Patient My Orders Orders - MARIAJOSE CA MD Procedure Category Date Status Time Communication Order ORDERS 10/05/24 Transmitted 19:05 Date of Service: Oct 05, 2024 Billing Provider: MARIAJOSE CA MD Common Visit Codes: [id number] INP/OBS CARE(HIGH) MARIAJOSE CA MD Oct 05, 2024 20:58
--- NOTE | 2024-10-05 23:12 | DVHPN2 ---
Progress Note - Dictate Date Seen: Oct 05, 2024 Medical Necessity Reason Pt with a Central, PICC or Fol: No Subjective Patient was seen and evaluated in follow up. Patient has no new complaints at this time. Patient denies any cardiac symptoms. Patient is cardiac stable for discharge. Telemetry reviewed. vital signs Vital Sign Date Time Temp Pulse Resp B/P (MAP) Pulse Ox O2 Delivery O2 Flow Rate FiO2 10/05/24 19:33 90 18 96 10/05/24 19:25 Nasal Cannula* 2 28 10/05/24 18:57 98.4 10/05/24 16:54 117/81 (93) Total Intake and Output 10/04/24 10/04/24 10/05/24 15:00 23:00 07:00 Intake Total 800 ml 900 ml Balance 800 ml 900 ml medications Current Medications Medications Dose Ordered Sig/Collin Route Start Time Stop Time Status Last Admin Dose Admin Albuterol 2.5 mg Q4HR NEB 10/02/24 14:00 10/05/24 19:25 2.5 MG Ipratropium Bradford 0.5 mg Q4HR NEB 10/02/24 14:00 10/05/24 19:25 0.5 MG Enoxaparin Sodium 40 mg DAILY SC 10/03/24 10:00 10/05/24 09:00 40 MG Acetaminophen 650 mg Q8HR PO 10/03/24 22:00 10/05/24 14:01 650 MG Prednisone 40 mg DAILY PO 10/04/24 10:00 10/05/24 09:00 40 MG Ketorolac Tromethamine 15 mg Q6HPRN PRN IV 10/03/24 14:45 10/08/24 14:44 Doxycycline Monohydrate 100 mg Q12HR PO 10/03/24 22:00 10/05/24 09:00 100 MG objective GENERAL: Awake, alert, oriented. LUNGS: Clear. CARDIOVASCULAR: Heart sounds are good. ABDOMEN: Soft. laboratory and microbiology Laboratory Tests 10/04/24 06:20 10/03/24 05:45 Test 10/04/24 06:20 Range/Units Serum Glucose 85 74-106 mg/dL Problem List Nonsustained ventricular tachycardia. Acute hypoxic respiratory failure. COPD exacerbation. Hypokalemia. History of seizures. History of tobacco use. Plan/Recommendation: Continued all current supportive medical care. Patient has been seen by Karo Espinoza NP on my behalf, her and I discussed the plan with the patient. Echocardiogram reveals EF 60%. Cardiac surveillance. Monitor and replete electrolytes as needed, keep potassium greater than four and magnesium greater than two. Pending nuclear stress test results. Additional plan as per the hospital course. Assessment/Plan Continued all current supportive medical care. Antibiotics as ordered. DVT prophylactics. Toradol for pain management. Additional plan as per the hospital course. Plan discussed with: Patient CAMERON GALLEGOS MD Oct 05, 2024 19:37
--- NOTE | 2024-10-06 08:22 | DVHSR ---
APPROVED REPORT Exam: Nuclear Stress Test Indication: Chest pain BMI: 0 Medical History Medical History: COPD, HTN Stress Test Details Stress Test: Pharmacologic stress testing performed using 0.4 mg of regadenoson per 5 mL given IV ov er 10 seconds. HR Resting HR: 88 bpmMax Heart Rate (APMHR): 157 bpm Max HR Achieved: 111 bpmTarget HR (85% APMHR): 133 bpm % of APMHR: 71 Recovery HR: 98 bpm BP Resting BP: 144/77 mmHg Recovery BP: 135/84 mmHg ECG Resting ECG: Sinus Rhythm Recovery ECG: Sinus Rhythm Clinical Reason for Termination: Completed protocol Nurse Comments Recieved pt. from [facility]. A/Ox4 on 3 liters NC. 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 PIV flushes well. Reviewed POC. Pt. verbalized understanding of procedure including risks and side ef fects, agrees for stress testing. Lexiscan stress test performed per protocol. [facility] tech administered Cardiolite. Pt. tolerated well . Pt. stable, no change on exam. VS returned to baseline. Transferred to [facility] via wheelchair w/ te ch. Stress ECG Conclusion Review of the myocardial perfusion images during stress showed large area of moderate intensity reduc ed radiotracer uptake in the apex, inferior and inferolateral gallardo. Based on review of the resting images, there is reversibility inferolateral wall part. Otherwise, it appears to be fixed. Left sean tricular volumes are normal. Ejection fraction is normal and is estimated at 53%. There is no signi ficant transient ischemic dilatation. No gated images are available to assess for wall motion. Impression: 1. Abnormal myocardial perfusion scan with fixed defect in the apex and inferior wall and reversible defect in inferolateral wall. 2. Normal left ventricular systolic function. NM EXAM: Myocardial Perfusion REST/STRESS Imaging Protocol: Rest Tc-99m/Stress Tc-99m 1 day Resting Data Rest SPECT myocardial perfusion imaging was performed in supine position 60 minutes following the int ravenous injection of 11.3 mCi of Tc-99m Sestamibi. Time of rest injection: 753 Date: 10/03/2024 Time of rest imagin Date: 10/03/2024 Administration Route: IV Administration Site: Left Arm Pharmacologic Stress Pharmacologic stress test was performed by injecting Regadenoson 0.4 mg IV push followed by the intra venous injection of 31.2 mCi of Tc-99m Sestamibi. Time of stress injection: 0950 Date: 10/03/2024 Time of stress imagin Date: 10/03/2024 Administration Route: IV Administration Site: Left Arm Gated Stress SPECT was performed 60 minutes after stress injection. The images were gated to evaluate regional wall motion and calculate left ventricular ejection fracti on. Stress only was performed in the Supine position. Nuclear Conclusion ECG Findings: negative for ischemia Clinical Findings: negative for ischemia Nuclear Findings: positive for ischemia Exercise Capacity: not assessed Left Ventricular Function: normal Risk Study: moderate Review of the myocardial perfusion images during stress showed large area of moderate intensity reduc ed radiotracer uptake in the apex, inferior and inferolateral gallardo. Based on review of the resting images, there is reversibility inferolateral wall part. Otherwise, it appears to be fixed. Left sean tricular volumes are normal. Ejection fraction is normal and is estimated at 53%. There is no signi ficant transient ischemic dilatation. No gated images are available to assess for wall motion. Impression: 1. Abnormal myocardial perfusion scan with fixed defect in the apex and inferior wall and reversible defect in inferolateral wall. 2. Normal left ventricular systolic function.
--- NOTE | 2024-10-06 11:26 | ECG ---
[facility] Test Date: 2024-10-02 Test Time: 15:01:18 Pat Name: PREMA PADILLA Department: ER Room: 0291T Gender: F Signal Inspector: ALFREDO : 1960 Requested By: AILYN JONES Order Number: [id number] Reading MD: Measurements Intervals [place] Rate: 101 P: -23 [place]: 168 QRS: 130 QRSD: 92 T: 131 QT: 436 QTc: 566 Interpretive Statements Sinus tachycardia Probable left atrial enlargement Probable right ventricular hypertrophy Nonspecific T abnrm, anterolateral leads Prolonged QT interval Baseline wander in lead(s) V6 Please click the below link to view image of tracing.
== END 2024-10-05 20:40 | disposition home or self-care (01) | DRG 140 ==
LOC: EDBD 08:51 → ER 08:51 → TELE 12:49 → TELE-WESTW 10-03 10:16
PROVIDERS: ADMIT Student in an Organized Health Care Education/Training Program; ATTEND Student in an Organized Health Care Education/Training Program
DX: J44.1 Chronic obstructive pulmonary disease with (acute) exacerbation (principal); J96.01 Acute respiratory failure with hypoxia; I47.20 Ventricular tachycardia, unspecified; I10 Essential (primary) hypertension; Z20.822 Contact with and (suspected) exposure to COVID-19; E87.6 Hypokalemia; G89.29 Other chronic pain; Z72.0 Tobacco use; Z87.442 Personal history of urinary calculi; Z90.49 Acquired absence of other specified parts of digestive tract; Z79.899 Other long term (current) drug therapy
CPT/HCPCS: 36415; 36600; 71045; 78452; 80048; 80053; 82805; 83735; 84100; 84484; 85025; 87426; 87804; 93005; 93017; 93306; 94640; 99291; G0378; J2470